=== PATIENT | male | born 1950 | race Caucasian/White ===

== ENCOUNTER 2016-06-26 19:26 | Emergency (ER) | payer OTHER ==
[~2016-06-26] VITALS: Ht 175.3 cm; Wt 81.7 kg
[~2016-06-26 19:26] MED LIST: ADULT LOW DOSE81 MG PO; ALAVERT10 MG PO; APAP500 PO; APAP650 PO; ASPIRIN EC325 MG PO; ASPIRIN EC81 M1 PO; ASPIRIN325; ASPIRIN325 PO; ATORVASTATIN CA80 MG PO; BACTRIM DS TAB1 EACH PO; BUPROPION; CARVEDILOL6.25 MG PO; CENTRUM SILVER1 EAC4 PO; CHERATUSSIN DA480 ML PO; CHILDREN'S ASPI81 M1 PO; CLEOCIN HCL300 MG PO; COREG; DIABETA 2.5MG2.5 MG PO; DOXYCYCLINE 10100 MG PO; EFFIENT10 MG PO; FLOMAX0.4 MG PO; FLORANEX PACKET1 GM PO; GLIPIZIDE ER5 MG PO; GLIPIZIDE XL5 MG PO; GLUCOPHAGE1000 MG; GLUCOPHAGE500 MG PO; HUMALOG KW200 UNIT/1 SQ; HUMALOG100 UNIT/1; HYDROCODON-ACE1 EAC7 PO; IBUPROFEN 200200 M1 PO; IBUPROFEN 400400 M1 PO; IMDUR 30 MG TAB30 M1 PO; LANTUS SOL100 UNIT/1 SQ; LANTUS SUBQ; LANTUS100 UNIT/M SUBQ; LANTUSSOLASTAR SUBQ; LEVEMIR SUBQ; LEVEMIR100 UNIT/1 SUBQ; LIPITOR20 MG PO; LIPITOR40 MG PO; LISINOPRIL5 MG PO; LOPRESSOR; MAGOX 400400 MG PO; MICRONASE5 MG; MUCINEX600 MG PO; NICOTINE TRANSD14 M1 TD; NITROSTAT0.4 MG SUBLING; NORCO 5-325 TA1 EACH PO; NORVASC 5 MG TAB5 MG PO; NOVOLOG100 UNIT/1 SQ; NOVOLOG100 UNIT/1 SUBQ; PERCOCET 5-3251 EACH PO; PERCOCET PO; PLAVIX 75 MG TA75 M1 PO; PLAVIX 75 MG TA75 MG; PRILOSEC 20 MG20 MG PO; PRINIVIL5 MG PO; PROAIR HFA8.5 GM INH; PROTONIX40 M1 PO; TRAMADOL 50 MG50 MG PO; TRAZODONE HCL50 MG PO; ULTRAM 50MG TAB50 MG PO; VITAMIN D 5050000 I1 PO; ZOCOR; ZPAK PO
[2016-06-26 20:52] LABS: ABSOLUTE NEUTROPHILS 5.8 thou/uL (1.4-8.2); BASOPHILS 0.8 % (0.0-2.0); EOSINOPHILS 0.7 % (0.0-3.0); LYMPHOCYTES 27.4 % (24.0-44.0); MCH 31.5 pg (26.0-34.0); MCHC 34.9 g/dL (28.0-37.0); MCV 90.3 fL (80.0-100.0); MONOCYTES 8.6 % (1.0-8.0); PLATELET COUNT 295 thou/uL (150-400); POLYS 62.5 % (36.0-66.0); RBC 4.77 mil/uL (4.50-6.00); RDW 12.8 % (10.5-14.5); WBC 9.2 thou/uL (4.0-11.0)
[2016-06-26 20:53] LABS: MANUAL DIFF NO
[2016-06-26 21:01] LABS: CALCIUM 8.7 mg/dL (8.5-10.1); CREATININE 0.8 mg/dL (0.7-1.3); POTASSIUM 3.6 mmol/L (3.5-5.1)
[2016-06-26 21:05] LABS: ALBUMIN 3.2 g/dL (3.4-5.0); TOTAL BILIRUBIN 0.3 mg/dL (<0.1-1.0); TOTAL PROTEIN 6.6 g/dL (6.4-8.2)
== END 2016-06-26 22:30 | disposition home or self-care (01) ==
LOC: ER 19:26
PROVIDERS: Nurse Practitioner Family
DX: E11.65 Type 2 diabetes mellitus with hyperglycemia (principal); I25.10 Atherosclerotic heart disease of native coronary artery without angina pectoris; I10 Essential (primary) hypertension; I25.2 Old myocardial infarction; E11.40 Type 2 diabetes mellitus with diabetic neuropathy, unspecified; J44.9 Chronic obstructive pulmonary disease, unspecified; F17.210 Nicotine dependence, cigarettes, uncomplicated; Z95.5 Presence of coronary angioplasty implant and graft; Z79.4 Long term (current) use of insulin

== ENCOUNTER 2016-10-23 16:50 | Inpatient (IN) | payer OTHER ==
[~2016-10-23] VITALS: Ht 175.3 cm; Wt 82.1 kg
--- NOTE | ~2016-10-23 | EKG ---
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1950 Requested By: Cassidy Blanchard Order Number: [id number] MD: Chalino Stanley Measurements Intervals [place] Rate: 70 P: 36 [place]: 174 QRS: 96 QRSD: 142 T: 20 QT: 445 QTc: 481 Interpretive Statements Sinus rhythm Right bundle branch block Anteroseptal infarct, age indeterminate Compared to ECG 10/23/2016 17:05:40 Atrial premature complex(es) no longer present Electronically Signed On 10-29-2016 8:41:55 CDT by Chalino Stanley [email or web address] <ELECTRONICALLY SIGNED> By: Chalino Stanley MD, [facility] 10/29/16 0841 0836 Chalino Stanley MD, [facility] /EPI
--- NOTE | ~2016-10-23 | EKG ---
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1950 Requested By: Dante Jackson Order Number: [id number] MD: Chalino Stanley Measurements Intervals [place] Rate: 85 P: 23 [place]: 154 QRS: 93 QRSD: 152 T: 18 QT: 437 QTc: 520 Interpretive Statements Sinus rhythm Atrial premature complex Right bundle branch block Anterior infarct, age indeterminate Compared to ECG 05/30/2015 13:12:47 No significant change was found Electronically Signed On 10-24-2016 7:55:02 CDT by Chalino Stanley [email or web address] <ELECTRONICALLY SIGNED> By: Chalino Stanley MD, [facility] 10/24/16 0755 1705 1705 Chalino Stanley MD, [facility] /EPI
--- NOTE | ~2016-10-23 | 2DMMODE ---
[facility] [address] [facility] [place] [address] 2 D/M-MODE ECHOCARDIOGRAM Name: REINIER NEVAREZ Room #: 207-P ADM IN M.R.#: [id number] Admission: 10/23/16 Attend Phys: Chris Nowak, Discharge: Date of : 54 Date of Service: 10/24/16 1048 Report #: [id number] THIS REPORT FOR: //name// APPROVED REPORT Study performed: 10/24/2016 09:12:00 EXAM: Comprehensive 2D, Doppler, and color-flow Echocardiogram Patient Location: Bedside Room #: 207 Status: routine BSA: 1.97 HR: 68 bpm BP: 115/67 mmHg Other Information Study Quality: Fair Indications Hx HTN, DM, CAD, CABG, COPD 2D Dimensions RVDd: 39.56 mm LVEF(%): 57.98 (>50%) IVSd: 12.62 (7-11mm) LVOT Diam: 19.76 (18-24mm) LVDd: 57.39 mm PWd: 11.43 (7-11mm) Ascending Ao: 33.13 (22-36mm) LVDs: 39.59 (25-40mm) Aortic Root: 34.66 mm IVC: 1.80 mm Foley's LVEF: 57.98 % Volumes Left Atrial Volume (Systole) Single Plane 4CH: 107.10 mL Single Plane 2CH: 81.59 mL LA ESV Index: 54.00 mL/m2 Aortic Valve AoV Peak John.: 2.23 m/s AO Peak Gr.: 16.56 mmHg LVOT Max P.50 mmHg AO Mean Gr.: 11.85 mmHg LVOT Mean P.39 mmHg AO V2 Mean: 1.59 m/s LVOT Max V: 1.12 m/s AO V2 VTI: 49.85 cm LVOT Mean V: 0.72 m/s YAQUELIN (VTI): 1.20 cm2 LVOT V1 VTI: 19.55 cm YAQUELIN Vmax: 1.54 cm2 SV (LVOT): 59.89 mL [facility] [place] [address] 2 D/M-MODE ECHOCARDIOGRAM Name: REINIER NEVAREZHERBIE Room #: 207-P [facility] IN ..#: [id number] Admission: 10/23/16 Attend Phys: Chris Nowak, Discharge: Date of : 54 Date of Service: 10/24/16 1048 Report #: [id number] Mitral Valve E/A Ratio: 0.9 MV Decel. Time: 179.09 ms MV E Max John.: 0.80 m/s MV A John.: 0.91 m/s MV PHT: 51.94 ms IVRT: 129.18 ms Pulmonary Valve PV Peak John.: 1.19 m/s PV Peak Gr.: 5.65 mmHg Pulmonary Vein P Vein S: 0.20 m/s P Vein A: 0.23 m/s P Vein D: 0.31 m/s P Vein A Dur.: 120.0 msec P Vein S/D Ratio: 0.65 Tricuspid Valve TR Peak John.: 1.98 m/s RAP Estimate: 5.00 mmHg TR Peak Gr.: 15.73 mmHg PA Pressure: 21.00 mmHg Left Ventricle Left ventricle is at the upper limits of normal. Borderline concentric left ventricular hypertrophy. Left ventricular systolic function is severely decreased. LVEF is 25-30%. Grade I - abnormal relaxation pattern. Right Ventricle Right ventricle is dilated. The right ventricular systolic function is normal. Atria Left atrium is dilated. Right atrium is dilated. Aortic Valve Aortic valve is calcified. The Aortic valve is sclerotic. Trace aortic regurgitation. There is mild valvular aortic stenosis. Calculated aortic valve area is 1.2 cm2 with maximum pressure gradient of 19.88 mmHg and mean pressure gradient of 11.85 mmHg. Mitral Valve There is mitral annular calcification. Trace mitral regurgitation. No evidence of mitral valve stenosis. Tricuspid Valve [facility] [address] [place] [address] 2 D/M-MODE ECHOCARDIOGRAM Name: REINIER NEVAREZ Room #: 207-P ADM IN M.R.#: [id number] Admission: 10/23/16 Attend Phys: Chris Nowak, Discharge: Date of : 54 Date of Service: 10/24/16 1048 Report #: [id number] The tricuspid valve is normal in structure. There is trace tricuspid regurgitation. The right atrial pressure is estimated at 5 mmHg. There is no pulmonary hypertension with an estimated PAP of 21 mmHg. Pulmonic Valve The pulmonary valve is normal in structure. There is no pulmonic valvular regurgitation. Great Vessels The aortic root is normal in size. IVC is normal in size and collapses >50% with inspiration. Pericardium There is no pericardial effusion. <Conclusion> Left ventricle is at the upper limits of normal. Left ventricular systolic function is severely decreased. LVEF is 25-30%. Right ventricle is dilated. Left atrium is dilated. Aortic valve is calcified. The Aortic valve is sclerotic. Trace aortic regurgitation. There is mild valvular aortic stenosis. Calculated aortic valve area is 1.2 cm2 with maximum pressure gradient of 19.88 mmHg and mean pressure gradient of 11.85 mmHg. There is mitral annular calcification. Trace mitral regurgitation. The pulmonary valve is normal in structure. <ELECTRONICALLY SIGNED> By: Jac Mena MD 10/24/16 1048 1048 1048 Jac Mena MD /INF
[2016-10-23 16:52] VITALS: BP 106/74
[2016-10-23 18:34] LABS: ABSOLUTE NEUTROPHILS 6.7 thou/uL (1.4-8.2); BASOPHILS 0.4 % (0.0-2.0); EOSINOPHILS 0.6 % (0.0-3.0); HEMATOCRIT 43.8 % (42.0-52.0); HEMOGLOBIN 14.9 gm/dL (14.0-18.0); LYMPHOCYTES 18.5 % (24.0-44.0); MCH 31.6 pg (26.0-34.0); MCHC 34.1 g/dL (28.0-37.0); MCV 92.7 fL (80.0-100.0); MONOCYTES 8.8 % (1.0-8.0); PLATELET COUNT 301 thou/uL (150-400); POLYS 71.7 % (36.0-66.0); RBC 4.72 mil/uL (4.50-6.00); WBC 9.3 thou/uL (4.0-11.0)
[2016-10-23 18:37] LABS: MANUAL DIFF NO
[2016-10-23 18:43] LABS: CALCIUM 9.2 mg/dL (8.5-10.1); POTASSIUM 3.7 mmol/L (3.5-5.1)
[2016-10-23 18:52] LABS: ALBUMIN 3.6 g/dL (3.4-5.0); TOTAL BILIRUBIN 0.5 mg/dL (<0.1-1.0); TOTAL PROTEIN 7.3 g/dL (6.4-8.2); TROPONIN-I 0.08 ng/mL (<0.04-0.07)
[2016-10-23 19:23] LABS: URINE BILIRUBIN NEGATIVE (Negative); URINE BLOOD NEGATIVE (Negative); URINE COLOR YELLOW; URINE GLUCOSE-RANDOM* 3+ (Negative); URINE KETONES 1+ (Negative); URINE NITRITE NEGATIVE (Negative); URINE PROTEIN (DIPSTICK) NEGATIVE (Negative); URINE SPECIFIC GRAVITY <= 1.005 (1.003-1.035); URINE UROBILINOGEN 0.2 E.U./dl (0.2-1.0)
[2016-10-23 23:33] VITALS: BP 107/68
[2016-10-24 00:23] VITALS: BP 115/67
[2016-10-24 07:46] VITALS: BP 105/48
[2016-10-24 11:10] VITALS: BP 120/72
[2016-10-24 15:15] VITALS: BP 106/67
[2016-10-24 19:26] VITALS: BP 137/78
[2016-10-25 07:45] VITALS: BP 105/60
[2016-10-25 19:22] VITALS: BP 121/69
[2016-10-26 05:52] VITALS: BP 130/79
[2016-10-26 07:49] VITALS: BP 115/76
[2016-10-26 09:49] LABS: CHOLESTEROL 185 mg/dL (<200); HDL CHOLESTEROL 25 mg/dL (>40); LDL CHOLESTEROL 120 mg/dL (<100); TC:HDL 7.4 Ratio (Not establshd); TRIGLYCERIDE 202 mg/dL (<150); VLDL 40 mg/dL (<40)
[2016-10-26 11:50] VITALS: BP 122/69
[2016-10-26 14:58] VITALS: BP 124/71
[2016-10-26 19:45] VITALS: BP 111/66
[2016-10-27 03:23] VITALS: BP 118/78
[2016-10-27 03:54] LABS: CALCIUM 8.9 mg/dL (8.5-10.1); CREATININE 0.8 mg/dL (0.7-1.3)
[2016-10-27 04:08] LABS: ABSOLUTE NEUTROPHILS 4.4 thou/uL (1.4-8.2); BASOPHILS 0.4 % (0.0-2.0); EOSINOPHILS 1.7 % (0.0-3.0); HEMATOCRIT 40.9 % (42.0-52.0); LYMPHOCYTES 30.9 % (24.0-44.0); MCH 31.7 pg (26.0-34.0); MCHC 34.2 g/dL (28.0-37.0); MCV 92.8 fL (80.0-100.0); MONOCYTES 9.3 % (1.0-8.0); PLATELET COUNT 275 thou/uL (150-400); POLYS 57.7 % (36.0-66.0); WBC 7.7 thou/uL (4.0-11.0)
[2016-10-27 04:12] LABS: MANUAL DIFF NO
[2016-10-27 07:52] VITALS: BP 121/69
[2016-10-27 16:02] VITALS: BP 125/80
[2016-10-27 19:47] VITALS: BP 136/72
[2016-10-28] VITALS (7 sets, daily range): BP systolic 89–138; BP diastolic 48–83
[2016-10-28 02:30] LABS: HEMATOCRIT 39.7 % (42.0-52.0); HEMOGLOBIN 13.4 gm/dL (14.0-18.0); MCH 31.7 pg (26.0-34.0); MCHC 33.7 g/dL (28.0-37.0); MCV 93.9 fL (80.0-100.0); RBC 4.23 mil/uL (4.50-6.00); RDW 13.3 % (10.5-14.5); WBC 8.9 thou/uL (4.0-11.0)
[2016-10-28 02:40] LABS: CALCIUM 8.8 mg/dL (8.5-10.1); CREATININE 0.8 mg/dL (0.7-1.3); POTASSIUM 4.5 mmol/L (3.5-5.1)
[2016-10-29 03:17] VITALS: BP 104/66
[2016-10-29 03:56] LABS: HEMATOCRIT 38.9 % (42.0-52.0); HEMOGLOBIN 13.3 gm/dL (14.0-18.0); MCH 31.6 pg (26.0-34.0); MCHC 34.1 g/dL (28.0-37.0); MCV 92.8 fL (80.0-100.0); RBC 4.19 mil/uL (4.50-6.00); RDW 12.8 % (10.5-14.5); WBC 10.3 thou/uL (4.0-11.0)
[2016-10-29 04:32] LABS: CALCIUM 8.8 mg/dL (8.5-10.1); CREATININE 0.8 mg/dL (0.7-1.3); POTASSIUM 4.2 mmol/L (3.5-5.1)
[2016-10-29 07:57] VITALS: BP 123/68
[2016-10-29] MEDS ORDERED: PLAVIX 75 MG TA75 M1 PO (08:23)
[2016-10-29] MEDS ORDERED: CARVEDILOL6.25 MG PO (08:23)
[2016-10-29] MEDS ORDERED: LISINOPRIL5 MG PO (08:23)
[2016-10-29] MEDS ORDERED: PERCOCET PO (08:23)
[2016-10-29] MEDS ORDERED: LIPITOR40 MG PO (13:46)
== END 2016-10-29 15:00 | DRG 271 ==
LOC: ER 16:50 → EROBS 21:00 → 2N 21:00
PROVIDERS: Internal Medicine Endocrinology, Diabetes & Metabolism; Nuclear Medicine Nuclear Cardiology; Nurse Practitioner Gerontology; Physician Assistant
PROC: 047N3Z1 Dilation of Left Popliteal Artery using Drug-Coated Balloon, Percutaneous Approach (ICD-10-PCS; principal; 2016-10-28)
PROC: B4181ZZ Fluoroscopy of Bilateral Renal Arteries using Low Osmolar Contrast (ICD-10-PCS; principal; 2016-10-28)
PROC: 047L341 Dilation of Left Femoral Artery with Drug-eluting Intraluminal Device, using Drug-Coated Balloon, Percutaneous Approach (ICD-10-PCS; principal; 2016-10-28)
PROC: 04CN3ZZ Extirpation of Matter from Left Popliteal Artery, Percutaneous Approach (ICD-10-PCS; principal; 2016-10-28)
PROC: B41D1ZZ Fluoroscopy of Aorta and Bilateral Lower Extremity Arteries using Low Osmolar Contrast (ICD-10-PCS; principal; 2016-10-28)
PROC: 047L3Z1 Dilation of Left Femoral Artery using Drug-Coated Balloon, Percutaneous Approach (ICD-10-PCS; principal; 2016-10-28)
DX: E11.51 Type 2 diabetes mellitus with diabetic peripheral angiopathy without gangrene (principal); I50.22 Chronic systolic (congestive) heart failure; L97.819 Non-pressure chronic ulcer of other part of right lower leg with unspecified severity; E11.65 Type 2 diabetes mellitus with hyperglycemia; I25.10 Atherosclerotic heart disease of native coronary artery without angina pectoris; E11.40 Type 2 diabetes mellitus with diabetic neuropathy, unspecified; J44.9 Chronic obstructive pulmonary disease, unspecified; F17.210 Nicotine dependence, cigarettes, uncomplicated; I11.0 Hypertensive heart disease with heart failure; E78.5 Hyperlipidemia, unspecified; I25.5 Ischemic cardiomyopathy; Z95.1 Presence of aortocoronary bypass graft; Z95.5 Presence of coronary angioplasty implant and graft; I25.2 Old myocardial infarction; Z91.14 Patient's other noncompliance with medication regimen; Z79.02 Long term (current) use of antithrombotics/antiplatelets; Z79.4 Long term (current) use of insulin; Z79.82 Long term (current) use of aspirin; Z79.899 Other long term (current) drug therapy; Z86.718 Personal history of other venous thrombosis and embolism; Z86.711 Personal history of pulmonary embolism; Z59.0 Homelessness; Z82.49 Family history of ischemic heart disease and other diseases of the circulatory system